=== PATIENT | female | born 1940 | race Caucasian/White ===

== ENCOUNTER 2016-12-20 07:14 | Day surgery (SDC) | payer OTHER ==
[2016-12-16 17:23] VITALS: BMI 26.6
[2016-12-20] MEDS ORDERED: PROPOFOL 20 ML ONE ×2 (07:17)
[2016-12-20 11:42] VITALS: TEMP 98
[2016-12-20 11:43] VITALS: BP 144/71; PULSE 71
--- NOTE | 2016-12-21 13:31 | PATH ---
Surgical Pathology Report Patient Name: INGRIS KLEIN [facility]. Rec. #: [id number] /Age/Gender: 1940 (Age: 76) / F Account: [id number] Location: [facility]-ENDOSCOPY Taken: 12/20/2016 Received: 12/20/2016 Reported: 12/21/2016 Physicians: Ridge Pringle M.D. Specimen(s) Received BX LEFT COLON Clinical History History of polyps Polyp Final Diagnosis COLON, LEFT, POLYP, POLYPECTOMY: SERRATED ADENOMA. Electronically Signed Dilip Ring M.D. Gross Description Received in formalin, labeled "left colon" is a ramires, irregular portion of soft tissue measuring 0.2 cm in greatest dimension. The specimen is submitted in toto in one cassette. 12/20/201612/20/2016
== END 2016-12-20 11:05 | disposition home or self-care (01) ==
LOC: FASU-ENDO 07:14
PROVIDERS: ATTEND Internal Medicine Gastroenterology
PROC: 0DBM8ZX Excision of Descending Colon, Via Natural or Artificial Opening Endoscopic, Diagnostic (ICD-10-PCS; principal; 2016-12-20 09:50)
DX: Z86.010 Personal history of colon polyps (principal); K63.5 Polyp of colon; K57.30 Diverticulosis of large intestine without perforation or abscess without bleeding
CPT/HCPCS: 88305-TC

== ENCOUNTER 2019-12-19 07:55 | Day surgery (SDC) | payer OTHER ==
[2019-12-18 08:37] VITALS: BMI 26.6
[2019-12-19] MEDS ORDERED: PROPOFOL 20 ML ONE ×2 (08:06)
[2019-12-19 10:07] VITALS: BP 128/68; PULSE 77; TEMP 97.4
--- NOTE | 2019-12-20 15:17 | PATH ---
Surgical Pathology Report Patient Name: INGRIS KLEIN [facility]. Rec. #: [id number] /Age/Gender: 1940 (Age: 79) / F Account: [id number] [facility] Taken: 12/19/2019 Received: 12/19/2019 Reported: 12/20/2019 Physicians: Ridge Pringle M.D. Specimen(s) Received POLYPECTOMY CECUM Clinical History History of polyps Postoperative diagnosis: Colon polyp, diverticulosis Final Diagnosis CECAL POLYP, POLYPECTOMY: TUBULAR ADENOMA. Electronically Signed Joby Renee M.D. Gross Description Received in formalin, labeled "hot snare polypectomy cecum" are 2 ramires, polypoid portions of soft tissue measuring 0.6 and 0.9 cm. in greatest dimension. The specimens are submitted in toto in one cassette. /12/19/2019 saudi12/19/2019
== END 2019-12-19 10:15 | disposition home or self-care (01) ==
LOC: FASU-ENDO 07:55
PROVIDERS: ATTEND Internal Medicine Gastroenterology
PROC: 0DBH8ZX Excision of Cecum, Via Natural or Artificial Opening Endoscopic, Diagnostic (ICD-10-PCS; principal; 2019-12-19 09:03)
DX: Z86.010 Personal history of colon polyps (principal); D12.0 Benign neoplasm of cecum; K57.30 Diverticulosis of large intestine without perforation or abscess without bleeding; K64.8 Other hemorrhoids

== ENCOUNTER 2020-06-15 12:13 | Emergency (ER) | payer OTHER ==
[2020-06-15 12:29] VITALS: BP 160/82; PULSE 80; TEMP 98.6; BMI 26.6
[2020-06-15] MEDS ORDERED: PROPARACAINE 0.5% OPHTH SOLN 15 ML BTL OD ONE (12:34)
[2020-06-15] MEDS ORDERED: FLUORESCEIN NA 1 EA STRIP OD ONE (12:34)
[2020-06-15] MEDS ORDERED: FLUORESCEIN NA 1 EA STRIP ONE (12:38)
[2020-06-15] MEDS ORDERED: TETRACAINE 0.5% OPHTH SOLN 2 ML BOTTLE ONE (12:39)
[2020-06-15] MEDS ORDERED: TETRACAINE 0.5% OPHTH SOLN 2 ML BOTTLE OD ONE (12:44)
--- NOTE | 2020-06-15 13:12 | PDOC ---
History of Present Illness - General Chief Complaint: Rash Stated Complaint: itchy rash Time Seen by Provider: 06/15/20 12:16 - History of Present Illness Initial Comments: 06/15/20 13:08 79 years old with past medical history significant for hypertension presents to the emergency department with 1 day history of rash to the side of the face. Rash has started from below her right ear extends to her right chin lateral to the right side of her nose and above her right eyebrow she is also complaining of some eye involvement but no change in vision it is predominantly itchy in nature but denies any new creams lotions or contacts with any wounds trees leaves outdoors no other complaints at this time denies headache visual changes weakness numbness nausea vomiting diarrhea Past History - Medical History Allergies/Adverse Reactions: Allergies Allergy/AdvReac Type Severity Reaction Status Date / Time Penicillins Allergy Severe Hives Verified 06/15/20 12:15 Home Medications: Ambulatory Orders Multivitamins [Multivit ([facility] Formulary)] 1 tab PO DAILY 07/09/15 Amlodipine Besylate 5 mg PO DAILY 12/18/19 Atorvastatin Ca [Lipitor] 10 mg PO HS 12/18/19 Aspirin [ASA -] 81 mg PO DAILY 06/15/20 Moxifloxacin HCl [Moxifloxacin] 2 ml OD QID #1 bottle 06/15/20 Valacyclovir HCl [Valacyclovir] 1,000 mg PO TID 7 Days #21 tablet 06/15/20 Anemia: No Asthma: No Cancer: No Cardiac Disorders: No CVA: No COPD: No CHF: No Dementia: No Diabetes: No GI Disorders: Yes (colonic polyps,) Disorders: No HTN: Yes Hypercholesterolemia: Yes Liver Disease: No Seizures: No Thyroid Disease: No - Surgical History Abdominal Surgery: No Appendectomy: No Cardiac Surgery: No Cholecystectomy: Yes (2014) Lung Surgery: No Neurologic Surgery: No Orthopedic Surgery: Yes (BILATERAL HIP REPLACEMENT, LEFT SHOULDER REPLACEMENT, PLATE IN RIGHT FEMUR) - Psycho-Social/Smoking History Smoking History: Never smoked Have you smoked in the past 12 months: No Number of Cigarettes Smoked Daily: 0 If you are a former smoker, when did you quit?: 1983 Information on smoking cessation initiated: No - Substance Abuse Hx (Audit-C & DAST Scrn) How often the patient has a drink containing alcohol: Monthly or less Number of drinks the patient has on a typical day: 1 or 2 How often the patient has six or more drinks on one occasion: Never Score: In Men: 4 or > Positive; In Women: 3 or > Positive: 1 Screen Result (Pos requires Nsg. Audit-10AR): Negative In the last yr the pt used illegal drug/Rx for NonMed reason: No Score: Yes response is considered Positive: 0 Screen Result (Positive result requires Nsg. DAST-10): Negative Review of Systems - Review of Systems Comments:: 06/15/20 13:09 ROS: A complete review of 10 out of 10 review of systems is taken and is negative apart from what is previously mentioned below and in the HPI. *Physical Exam - Vital Signs Last Vital Signs Temp Pulse Resp BP Pulse Ox 98.6 F 80 18 160/82 97 06/15/20 12:14 06/15/20 12:14 06/15/20 12:14 06/15/20 12:14 06/15/20 12:14 - Physical Exam 06/15/20 13:09 Vitals: Triage Vital signs reviewed General Appearance: No acute distress, well nourished well developed, Head: Atraumatic, Eyes: Pupils equal reactive round, extraocular movement intactVisual acuity 20/30 left eye, 20/25 right eye slight fluorescein uptake to the lateral aspect of the right eye Ears: TM's normal bilaterally; No lesions noted Nose: Nares patent bilaterally; no nasal congestion, No lesion noted to tip of nose Throat: Posterior oropharynx without erythema, mucous membranes moist, Neck: Supple; no Nucal rigidity Chest Wall: Nontender Cardiac: Regular rate and rhythym, no murmurs, no rubs, no gallops, Lungs: Clear to auscultation bilateral, good air movement bilaterally, Abdomen: Soft, non distended, normal bowel sounds, non tender to palpation Extremities: Full range of motion to all extremities, no cyanosis, clubbing, or edema Skin: Warm and dry, no rashes or lesions, no rash, no petechiae Neuro: AOX3; cranial Nerves 2-12 grossly intact, strength intact to all extremities, sensation intact to all extremities, gait normal Psych: Normal mood, normal affect 06/15/20 14:00 ED Treatment Course - Medications Given in the ED: ED Medications Discontinued Medications Generic Name Dose Route Start Last Admin Trade Name Freq PRN Reason Stop Dose Admin Fluorescein Sodium 1 ea 06/15/20 12:34 06/15/20 12:47 Fluorets - OD 06/15/20 12:35 1 ea ONCE ONE Administration Proparacaine HCl 1 drop 06/15/20 12:34 06/15/20 12:50 Alcaine - OD 06/15/20 12:35 Not Given ONCE ONE Tetracaine HCl 1 drop 06/15/20 12:44 06/15/20 12:48 Pontocaine OD 06/15/20 12:45 1 drp ONCE ONE Administration Medical Decision Making - Medical Decision Making 06/15/20 13:10 Differential diagnosis includes early herpes zoster with possible herpes ophthalmicus versus simple allergic reaction We will empirically treat with Valcyclovir. 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 Foley recommends moxifloxacin eyedrops We will see patient this week. Patient will follow-up with PCP this week as well Findings, the need for follow-up and strict return instructions discussed with patient. 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 Moxifloxacin as Prescribed 2 drops to right eye 4 times a day for 10 days. Follow-up with Dr. Foley this week. Follow-up with your primary care provider this week. Return to the emergency department for any severe worsening symptoms or for any concerns. Okay to use Benadryl cream or oral Benadryl as directed on package as needed for itching. - Post Discharge Activity
== END 2020-06-15 13:22 | disposition home or self-care (01) ==
LOC: FER 12:13
DX: B02.30 Zoster ocular disease, unspecified (principal)
CPT/HCPCS: 99283-25